=== PATIENT | female | born 1980 | race Caucasian/White ===

== ENCOUNTER 2018-05-24 14:19 | Outpatient (CLI) | payer BC ==
--- NOTE | 2018-05-24 15:19 | MMO ---
Bilateral MAMMO Bilat Diag [facility]. CLINICAL HISTORY: Patient is 38 years old and is seen for diagnostic exam. The patient has no family history of breast cancer. The patient has no personal history of cancer. VIEWS: The views performed were: bilateral craniocaudal with tomosynthesis; bilateral mediolateral oblique with tomosynthesis; and bilateral mediolateral. FILMS COMPARED: The present examination has been compared to a prior imaging study performed at [facility] on 05/24/2018. MAMMOGRAM FINDINGS: The breasts are extremely dense, which may lower the sensitivity of mammography. Finding 1: There are benign appearing calcifications seen in the right breast. Finding 2: Normal ultrasound There are no suspicious masses, suspicious calcifications, or new areas of architectural distortion. IMPRESSION: THERE IS NO MAMMOGRAPHIC EVIDENCE OF MALIGNANCY. A ROUTINE FOLLOW-UP MAMMOGRAM AT AGE 41 IS RECOMMENDED. THE RESULTS OF THIS EXAM WERE SENT TO THE PATIENT. ACR BI-RADS Category 2 - Benign finding MAMMOGRAPHY NOTE: 1. A negative mammogram report should not delay a biopsy if a dominant of clinically suspicious mass is present. 2. Approximately 10% to 15% of breast cancers are not detected by mammography. 3. Adenosis and dense breasts may obscure an underlying neoplasm.
--- NOTE | 2018-05-24 15:37 | ULT ---
RIGHT BREAST ULTRASOUND: HISTORY: Apparently, the ordering physician felt a palpable finding in the right breast at approximately the 7 o'clock position, although the patient could not feel this and could not actually locate the exact s pot of palpable concern. FINDINGS: The right breast is evaluated from 6 o'clock from to the 9 o'clock position. No solid or cystic mass . IMPRESSION: 1. Unremarkable right breast ultrasound. 2. BIRADS category 2, benign findings. Followup bilateral mammogram at age 41. If the patient develops any new focal finding prior to that, a followup right breast ultrasound is re commended. POS: OFF
== END 2018-05-24 14:20 | disposition home or self-care (01) ==
LOC: BICMAMMO 14:19
PROVIDERS: ATTEND Internal Medicine
DX: N63.10 Unspecified lump in the right breast, unspecified quadrant (principal)
CPT/HCPCS: 77066; G0279

== ENCOUNTER 2021-09-02 08:31 | Outpatient (CLI) | payer BC | END 2021-09-02 08:32 | disposition home or self-care (01) | LOC: BICMAMMO 08:31 | PROVIDERS: ATTEND Obstetrics & Gynecology | DX: Z12.31 Encounter for screening mammogram for malignant neoplasm of breast (principal) | CPT/HCPCS: 77063; 77067 ==